=== PATIENT | male | born 2000 | race Caucasian/White ===

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

== ENCOUNTER 2022-03-07 15:23 | Observation (INO) | payer OTHER ==
[2022-03-07] MEDS ORDERED: ONDANSETRON 4 MG/2 ML VIAL IVP STA (15:32)
[2022-03-07] MEDS ORDERED: SODIUM CHLORIDE 0.9% 1,000 ML IV STA (15:32)
--- NOTE | 2022-03-07 15:44 | ED ---
Nausea/Vomiting/Diarrhea HPI - General Chief complaint: Nausea/Vomiting/Diarrhea Stated complaint: Adverse reaction to heat Time Seen by Provider: 03/07/22 15:32 Source: patient, RN notes reviewed, old records reviewed Mode of arrival: ambulatory Limitations: no limitations - History of Present Illness Initial comments: 21-year-old male presents ambulatory to the emergency room with complaints of 3 hours of nausea and vomiting with muscle cramps. 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 He states that he only had a small amount of fruit this morning and hasn't eaten all day. Patient is pacing in the room profusely diaphoretic, vomiting clear liquid. He states his only medical history is chronic abdominal pain and his doctor has been testing him with no definitive results. He does smoke marijuana daily but has not smoked marijuana in 6 days as he is trying to quit. MD complaint: nausea, vomiting, other (Dizziness and muscle cramps) -: hour(s) (3) Description of Vomiting: watery Associated Symptoms: myalgias, fever/chills, nausea/vomiting - Related Data Home Medications Medication Instructions Recorded Confirmed No Known Home Medications 08/29/20 12/18/20 Allergies Allergy/AdvReac Type Severity Reaction Status Date / Time adhesive tape Allergy Rash/Hives Verified 03/07/22 15:28 Review of Systems ROS Statement: Those systems with pertinent positive or pertinent negative responses have been documented in the HPI. ROS Other: All systems not noted in ROS Statement are negative. Past Medical History Past Medical History: No Reported History History of Any Multi-Drug Resistant Organisms: None Reported Past Surgical History: No Surgical Hx Reported Additional Past Surgical History / Comment(s): wisdom teeth. Past Psychological History: ADD/ADHD, Bipolar Smoking Status: Current some day smoker, Vaper Past Alcohol Use History: Rare Past Drug Use History: Marijuana General Exam Limitations: no limitations General appearance: alert, in no apparent distress Head exam: Present: atraumatic, normocephalic, normal inspection Eye exam: Present: normal appearance. Absent: scleral icterus, conjunctival injection, periorbital swelling, periorbital tenderness ENT exam: Present: mucous membranes moist Neck exam: Present: normal inspection, full ROM. Absent: tenderness, meningismus Respiratory exam: Absent: respiratory distress, accessory muscle use Cardiovascular Exam: Present: tachycardia GI/Abdominal exam: Present: soft Extremities exam: Present: full ROM, normal capillary refill Back exam: Present: full ROM. Absent: tenderness, CVA tenderness (R), CVA tenderness (L), rash noted Neurological exam: Present: alert, oriented X3, normal gait Psychiatric exam: Present: anxious Skin exam: Present: warm, intact, normal color, diaphoretic. Absent: petechiae, pallor, mottled Course Vital Signs 03/07/22 15:24 Temperature 98.1 F Pulse Rate 101 H Respiratory 20 Rate Blood Pressure 152/86 O2 Sat by Pulse 98 Oximetry Medical Decision Making - Medical Decision Making patient presents with 3 hours of persistent nausea vomiting after working on a roof outside for the past 8 hours in the heat. Labs show a BUN 22, Cr 2.24, CO2 17. Patient was given 2 L of normal saline. Zofran and droperidol for vomiting. Pt will be admitted for TANO and heat exhaustion. patient is agreeable to this plan of care. case discussed with Dr. Cazares. - Lab Data Result diagrams: 03/07/22 16:02 Lab Results 03/07/22 03/07/22 Range/Units 15:45 16:02 Sodium 139 (137-145) mmol/L Potassium 4.9 (3.5-5.1) mmol/L Chloride 98 (98-107) mmol/L Carbon Dioxide 17 L (22-30) mmol/L Anion Gap 24 mmol/L BUN 22 H (9-20) mg/dL Creatinine 2.24 H (0.66-1.25) mg/dL Est GFR (CKD-EPI)AfAm 47 (>60 ml/min/1.73 sqM) Est GFR (CKD-EPI)NonAf 41 (>60 ml/min/1.73 sqM) Glucose 130 H (74-99) mg/dL POC Glucose (mg/dL) 132 H (70-110) mg/dL POC Glu Stapler Machine ID [id number] Calcium 11.7 H (8.4-10.2) mg/dL Disposition Clinical Impression: TANO (acute kidney injury), Heat exhaustion Disposition: ADMITTED IP TO THIS HOSP Referrals: None,Stated [REFERRING] - 1-2 days Decision Date: 03/07/22 Decision Time: 17:16
[2022-03-07 15:48] LABS: Glucose,Whole Blood 132 mg/dL (70-110)
[2022-03-07] MEDS ORDERED: SODIUM CHLORIDE 0.9% 1,000 ML IV ONE (16:43)
[2022-03-07 17:02] LABS: Calcium 11.7 mg/dL (8.4-10.2); Potassium 4.9 mmol/L (3.5-5.1)
[2022-03-07] MEDS ORDERED: NALOXONE 0.4 MG/ML 1 ML VIAL IV PRN (17:22)
[2022-03-07] MEDS ORDERED: ONDANSETRON 4 MG/2 ML VIAL IVP PRN (17:22)
[2022-03-07] MEDS ORDERED: ACETAMINOPHEN TAB 325 MG TAB PO PRN (17:22)
[2022-03-07] MEDS: SODIUM CHLORIDE 0.9% 1,000 ML IV SCH (18:19)
[2022-03-07] MEDS ORDERED: ALPRAZolam 0.25 MG TAB PO STA (19:45)
[2022-03-07 20:23] VITALS: RESP 16
[2022-03-07 21:18] LABS: Appearance,Urine Clear (Clear); Bilirubin,Urine Negative (Negative); Blood,Urine Negative (Negative); Color,Urine Yellow; Glucose,Urine (UA) Negative (Negative); Ketones,Urine 4+ (Negative); Leukocyte Esterase,Urine Negative (Negative); Mucus,Urine Occasional /hpf; Nitrite,Urine Negative (Negative); Protein,Urine 1+ (Negative); RBC,Urine <1 /hpf (0-5); Specific Gravity,Urine 1.033 (1.001-1.035); Squamous Epithelial Cell,Urine <1 /hpf (0-4); Urobilinogen,Urine <2.0 mg/dL (<2.0); WBC,Urine 4 /hpf (0-5)
[2022-03-07 21:29] LABS: Amphetamine Screen,Urine Not Detected (NotDetected); Barbiturate Screen,Urine Not Detected (NotDetected); Benzodiazepines Screen,Urine Not Detected (NotDetected); Cocaine Screen,Urine Not Detected (NotDetected); Methadone Screen, Urine Not Detected (NotDetected); Opiate Screen,Urine Not Detected (NotDetected); Oxycodone Screen, Urine Not Detected (NotDetected); Phencyclidine Screen,Urine Not Detected (NotDetected); Tricyclic Antidepressant,Urine Not Detected (NotDetected)
[2022-03-07 21:30] LABS: Urn Cannabinoid Scrn Detected (NotDetected)
[2022-03-08] MEDS: SODIUM CHLORIDE 0.9% 1,000 ML IV SCH ×2 (04:35→12:06)
[2022-03-08 08:12] VITALS: BP 130/68; PULSE 53; TEMP 98.4
[2022-03-08 10:26] LABS: African American GFR (CKD) >90 (>60 ml/min/1.73 sqM); Anion Gap 12 mmol/L; Blood Urea Nitrogen 16 mg/dL (9-20); Calcium 9.7 mg/dL (8.4-10.2); Carbon Dioxide 22 mmol/L (22-30); Chloride 102 mmol/L (98-107); Glucose 101 mg/dL (74-99); Non-African American GFR(CKD) >90 (>60 ml/min/1.73 sqM); Potassium 3.8 mmol/L (3.5-5.1); Sodium 136 mmol/L (137-145)
--- NOTE | 2022-03-08 11:15 | P.HPIM ---
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 Patient was a having dark urine and significantly decreased urine output found to have a acute renal failure with creatinine going up to 2.4 baseline creatinine within normal limits. Patient is admitted for heat exhaustion and dehydration. Patient received IV fluids overnight patient is clinically doing well at this time patient is feeling much better no nausea vomiting able to tolerate diet. Muscle cramps resolved. Creatinine improved to 0.79 patient is usually able to urinate well and not concentrated anymore. Patient denied any dysuria, fever chills REVIEW OF SYSTEMS: CONSTITUTIONAL: No fever, no malaise, no fatigue. HEENT: No recent visual problems or hearing problems. Denied any sore throat. CARDIOVASCULAR: No chest pain, orthopnea, PND, no palpitations, no syncope. PULMONARY: No shortness of breath, no cough, no hemoptysis. GASTROINTESTINAL: No diarrhea, no abdominal pain. NEUROLOGICAL: No headaches, no weakness, no numbness. HEMATOLOGICAL: Denies any bleeding or petechiae. GENITOURINARY: Denies any burning micturition, frequency, or urgency. MUSCULOSKELETAL/RHEUMATOLOGICAL: Denies any joint pain, swelling, or any muscle pain. ENDOCRINE: Denies any polyuria or polydipsia. The rest of the 14-point review of systems is negative. PHYSICAL EXAMINATION: GENERAL: The patient is alert and oriented x3, not in any acute distress. Well developed, well nourished. HEENT: Pupils are round and equally reacting to light. EOMI. No scleral icterus. No conjunctival pallor. Normocephalic, atraumatic. No pharyngeal erythema. No thyromegaly. CARDIOVASCULAR: S1 and S2 present. No murmurs, rubs, or gallops. PULMONARY: Chest is clear to auscultation, no wheezing or crackles. ABDOMEN: Soft, nontender, nondistended, normoactive bowel sounds. No palpable organomegaly. MUSCULOSKELETAL: No joint swelling or deformity. EXTREMITIES: No cyanosis, clubbing, or pedal edema. NEUROLOGICAL: Gross neurological examination did not reveal any focal deficits. SKIN: No rashes. Assessment and plan -Heat exhaustion patient received IV fluids clinically doing well symptoms resolved -Dehydration: -Acute renal failure prerenal azotemia due to dehydration improved at this time -Marijuana use patient has not smoked marijuana for about a can try to quit marijuana Patient has significant clinical improvement will be discharged today Past Medical History Past Medical History: No Reported History History of Any Multi-Drug Resistant Organisms: None Reported Past Surgical History: No Surgical Hx Reported Additional Past Surgical History / Comment(s): wisdom teeth. Past Psychological History: ADD/ADHD, Bipolar Smoking Status: Vaper Past Alcohol Use History: Rare Past Drug Use History: Marijuana Medications and Allergies Home Medications Medication Instructions Recorded Confirmed Type Omeprazole 40 mg PO HS 03/07/22 03/07/22 History QUEtiapine [SEROquel] 50 mg PO HS 03/07/22 03/07/22 History Allergies Allergy/AdvReac Type Severity Reaction Status Date / Time adhesive tape Allergy Rash/Hives Verified 03/07/22 17:52 Physical Exam Vitals: Vital Signs Temp Pulse Pulse Resp BP BP Pulse Ox 03/08/22 07:30 98.4 F 53 L 16 130/68 100 03/07/22 20:00 98.1 F 67 16 139/90 100 03/07/22 18:11 100 18 152/72 100 03/07/22 15:24 98.1 F 101 H 20 152/86 98 Intake and Output 03/07/22 03/08/22 03/08/22 22:59 06:59 14:59 Output Total 500 Balance -500 Output: Urine 500 Other: Voiding Method Toilet # Voids 1 Weight 90.718 kg Results CBC & Chem 7: 03/08/22 09:53 Labs: Abnormal Lab Results - Last 24 Hours (Table) 03/07/22 03/07/22 03/07/22 Range/Units 15:45 16:02 21:00 Sodium (137-145) mmol/L Carbon Dioxide 17 L (22-30) mmol/L BUN 22 H (9-20) mg/dL Creatinine 2.24 H (0.66-1.25) mg/dL Glucose 130 H (74-99) mg/dL POC Glucose (mg/dL) 132 H (70-110) mg/dL Calcium 11.7 H (8.4-10.2) mg/dL Urine Protein 1+ H (Negative) Urine Ketones 4+ H (Negative) Urine Mucus Occasional H (None) /hpf U Marijuana (THC) Screen (NotDetected) 03/07/22 03/08/22 Range/Units 21:00 09:53 Sodium 136 L (137-145) mmol/L Carbon Dioxide (22-30) mmol/L BUN (9-20) mg/dL Creatinine (0.66-1.25) mg/dL Glucose 101 H (74-99) mg/dL POC Glucose (mg/dL) (70-110) mg/dL Calcium (8.4-10.2) mg/dL Urine Protein (Negative) Urine Ketones (Negative) Urine Mucus (None) /hpf U Marijuana (THC) Screen Detected H (NotDetected) Thrombosis Risk Factor Assmnt - Choose All That Apply Each Factor Represents 1 point: Obesity (BMI >25) Thrombosis Risk Factor Assessment Total Risk Factor Score: 1 Thrombosis Risk Factor Assessment Level: Low Risk
--- NOTE | 2022-03-08 11:16 | P.DS ---
Providers Date of admission: 03/07/22 17:12 Attending physician: Yesica Chin Primary care physician: Refugio Russell MD Hospital Course: Please refer to my history of present illness for further details Plan - Discharge Summary New Discharge Prescriptions: No Action QUEtiapine [SEROquel] 50 mg PO HS Omeprazole 40 mg PO HS Discharge Medication List Omeprazole 40 mg PO HS 03/07/22 [History] QUEtiapine [SEROquel] 50 mg PO HS 03/07/22 [History] Follow up Appointment(s)/Referral(s): Refugio Russell MD [Primary Care Provider] - 1 Week None,Stated [REFERRING] - 1-2 days Discharge Disposition: HOME SELF-CARE
[2022-03-08] MEDS ORDERED: QUEtiapine 50 MG TAB PO SCH (21:00)
[2022-03-08] MEDS ORDERED: PANTOPRAZOLE 40 MG TABLET PO SCH (21:00)
== END 2022-03-08 12:06 | disposition home or self-care (01) ==
LOC: EC 15:23 → 5NMEDONC 17:12
PROVIDERS: ADMIT Hospitalist; ATTEND Hospitalist
DX: N17.9 Acute kidney failure, unspecified (principal); R39.2 Extrarenal uremia; E86.0 Dehydration; T67.5XXA Heat exhaustion, unspecified, initial encounter; F90.9 Attention-deficit hyperactivity disorder, unspecified type; F31.9 Bipolar disorder, unspecified; E66.9 Obesity, unspecified; Z68.25 Body mass index [BMI] 25.0-25.9, adult; F17.200 Nicotine dependence, unspecified, uncomplicated; Z98.890 Other specified postprocedural states; Z79.899 Other long term (current) drug therapy; Z91.09 Other allergy status, other than to drugs and biological substances
CPT/HCPCS: 96376; 96361 ×2; 96374; 96375; 99285; 36415; 80048 ×2; 81001; 80306; G0378 ×2; J2405; J1790